=== PATIENT | female | born 1940 | race Caucasian/White ===

== ENCOUNTER 2016-11-03 12:36 | Inpatient (IN) | payer OTHER ==
[2016-11-03] VITALS (11 sets, daily range): BP systolic 79–144; BP diastolic 47–101
[~2016-11-03] VITALS: Ht 162.6 cm; Wt 91.9 kg
[2016-11-03 13:11] LABS: BASE EXCESS -0.2 mEq/L (-3 to +3); BICARBONATE 28.7 mEq/L (22-26); CARBOXY HGB 2.3 % (0-5); COMMENTS - BLOOD GASES A+C+; METHEMOGLOBIN 1.3 % (0-1.5); PCO2 67 mm Hg (35-45); PO2 232 mm Hg (80-100); SITE LRA; pH 7.24 (7.35-7.45)
[2016-11-03 13:12] LABS: DEVICE 840; FI02 100 %; MECHANICAL RATE 16 resp/min; MODE AC; PEEP 5 CM/H20; TIDAL VOLUME 450 ML; TOTAL RESP RATE 16 resp/min
[2016-11-03 13:26] LABS: HEMATOCRIT 39.5 % (36.0-46.0); MCH 26.9 PG (29.0-34.0); MCHC 29.9 G/DL (30.0-36.0); MCV 90.2 FL (83-99); NRBC (%) 0.1 /100 WBC (0-0); RBC DIS.WIDTH-CV 14.7 % (11.8-14.6); RBC DIS.WIDTH-SD 48.5 % (39-53); RED BLOOD COUNT 4.38 M/uL (3.80-5.20); WHITE BLOOD COUNT 23.1 K/uL (4.1-10.2)
[2016-11-03 13:36] LABS: CHLORIDE 102 mEq/L (99-109); POTASSIUM 3.8 mEq/L (3.7-5.4); SODIUM 141 mEq/L (136-147)
[2016-11-03 13:38] LABS: GLUCOSE 389 mg/dL (70-99)
[2016-11-03 13:39] LABS: ANION GAP 18 MEQ/L (2-14)
[2016-11-03 13:40] LABS: TOTAL BILIRUBIN 0.6 mg/dL (0.0-1.0)
[2016-11-03 13:42] LABS: ALKALINE PHOSPHATASE 110 IU/L (3-129); GFR ESTIMATE (CALCULATED) 29 mL/min/
[2016-11-03 13:43] LABS: UREA NITROGEN (BUN) 54 mg/dL (9-23)
[2016-11-03 13:45] LABS: CREATINE KINASE 63 IU/L (1-294); TOTAL CK 63 IU/L (1-294)
[2016-11-03 13:48] LABS: TROP-I INTERPRETATION NEGATIVE; TROPONIN-I 0.05 ng/mL (0.0-0.30)
[2016-11-03 13:51] LABS: CK-MB 1.6 ng/mL (0.0-4.9)
[2016-11-03 13:58] LABS: INTER. NORMALIZED RATIO 1.4
[2016-11-03 14:05] LABS: PROTHROMBIN TIME 14.8 (9.2-11.2)
[2016-11-03 14:09] LABS: PTT 20.7 (25-32)
[2016-11-03 14:16] LABS: ADD MIUA? YES; BILIRUBIN SMALL; BLOOD NEGATIVE; COLOR AMBER ((YELLOW)); GLUCOSE (STRIP) 50; KETONES NEGATIVE; LEUKOCYTES NEGATIVE; NITRITE NEGATIVE; PROTEIN (STRIP) 30; SPECIFIC GRAVITY 1.018 (1.000-1.030)
[2016-11-03 14:25] LABS: BACTERIA 1+ /HPF; BUDDING YEAST 3+; CALCIUM OXALATE CRYSTALS 3+ /HPF; EPITHELIAL CELLS 2+ /HPF; HYALINE CASTS TNTC /LPF; MUCUS 4+ /LPF; RED BLOOD CELLS 0-5 /HPF (0-5); UCUL ADDED? NO; WHITE BLOOD CELLS 30-40 /HPF (0-5); WHITE BLOOD CELLS CLUMP MANY /HPF (0-5)
[2016-11-03 14:47] LABS: ABS NEUTROPHIL COUNT 19.7; ATYPICAL LYMPHOCYTE 2.6 %; BAND NEUTROPHILS 11.3 % (0-8.0); EOSINOPHIL ABS CT 0; INSTRUMENT ABS NEUTROPHIL CT 19.7 K/uL; LYMPHOCYTES 5.2 % (15.0-45.0); MEAN PLAT.VOLUME 9.8 uM^3 (9.5-12.4); METAMYELOCYTES 1.7 %; MYELOCYTES 1.8 %; PLATELET COUNT 587 K/uL (156-360); SEG.NEUTROPHILS 73.9 % (46.0-76.0)
[2016-11-03 15:01] LABS: BASE EXCESS 1.8 mEq/L (-3 to +3); BICARBONATE 28.2 mEq/L (22-26); METHEMOGLOBIN 1.3 % (0-1.5); PCO2 51 mm Hg (35-45); PO2 103 mm Hg (80-100); pH 7.35 (7.35-7.45)
[2016-11-03 15:03] LABS: COMMENTS - BLOOD GASES A+C+; DEVICE VENT; FI02 60 %; MECHANICAL RATE 20 resp/min; MODE AC; PEEP 5 CM/H20; SITE LR; TIDAL VOLUME 450 ML; TOTAL RESP RATE 20 resp/min
[2016-11-03 16:22] LABS: ANISOCYTOSIS 1+; PLAT.SUFFICIENCY INCREASED
[2016-11-03 18:45] LABS: METH RESISTANT S AUREUS PCR NEGATIVE (NEGATIVE)
[2016-11-03 18:54] LABS: PROBE CHECK PASS; SPECIMEN PROCESSING CONTROL PASS
[2016-11-03 19:18] LABS: MAGNESIUM 2.4 mg/dL (1.3-2.7)
[2016-11-03 20:26] LABS: UR CREATININE CONCENTRATION 121.4 MG/DL
[2016-11-04] VITALS (22 sets, daily range): BP systolic 89–139; BP diastolic 49–76
[2016-11-04 00:22] LABS: POINT-OF-CARE METER ID UU14162636
[2016-11-04 01:03] LABS: CREATINE KINASE 58 IU/L (1-294); TOTAL CK 58 IU/L (1-294)
[2016-11-04 01:06] LABS: TROP-I INTERPRETATION NEGATIVE; TROPONIN-I 0.05 ng/mL (0.0-0.30)
[2016-11-04 01:15] LABS: CK-MB 1.3 ng/mL (0.0-4.9)
[2016-11-04 05:35] LABS: TROP-I INTERPRETATION NEGATIVE; TROPONIN-I 0.03 ng/mL (0.0-0.30)
[2016-11-04 05:37] LABS: HEMATOCRIT 35.2 % (36.0-46.0); MCH 26.7 PG (29.0-34.0); MCHC 30.4 G/DL (30.0-36.0); MCV 87.8 FL (83-99); MEAN PLAT.VOLUME 9.9 uM^3 (9.5-12.4); PLATELET COUNT 418 K/uL (156-360); RBC DIS.WIDTH-CV 14.8 % (11.8-14.6); RBC DIS.WIDTH-SD 47.8 % (39-53); RED BLOOD COUNT 4.01 M/uL (3.80-5.20); WHITE BLOOD COUNT 20.8 K/uL (4.1-10.2)
[2016-11-04 05:42] LABS: ANION GAP 12 MEQ/L (2-14); CHLORIDE 104 MEQ/L (99-109); CREATINE KINASE 33 IU/L (1-294); GFR ESTIMATE (CALCULATED) 39 mL/min/; GLUCOSE 258 mg/dL (70-99); POTASSIUM 3.6 MEQ/L (3.7-5.4); SAMPLE HEMOLYSIS CHECK 0; SAMPLE ICTERIC CHECK 0; SAMPLE LIPEMIA CHECK 0; SODIUM 143 MEQ/L (136-147); TOTAL CK 33 IU/L (1-294); UREA NITROGEN (BUN) 53 mg/dL (9-23)
[2016-11-04 06:29] LABS: POINT-OF-CARE METER ID UU14162636
[2016-11-04 10:16] LABS: ABS NEUTROPHIL COUNT 18.8; BAND NEUTROPHILS 11.4 % (0-8.0); BASOPHILS 0.9 %; EOSINOPHIL ABS CT 0; INSTRUMENT ABS NEUTROPHIL CT 18.1 K/uL; LYMPHOCYTES 5.3 % (15.0-45.0); MYELOCYTES 1.8 %; SEG.NEUTROPHILS 78.9 % (46.0-76.0)
[2016-11-04 12:51] LABS: TROP-I INTERPRETATION NEGATIVE; TROPONIN-I 0.03 ng/mL (0.0-0.30)
[2016-11-04 12:53] LABS: CREATINE KINASE 24 IU/L (1-294); TOTAL CK 24 IU/L (1-294)
[2016-11-04 13:06] LABS: POINT-OF-CARE METER ID UU14162636
[2016-11-04 13:41] LABS: CK-MB 0.7 ng/mL (0.0-4.9)
[2016-11-04 18:15] LABS: POINT-OF-CARE METER ID UU13113803
[2016-11-04 18:22] LABS: TROP-I INTERPRETATION NEGATIVE; TROPONIN-I 0.03 ng/mL (0.0-0.30)
[2016-11-04 18:46] LABS: CREATINE KINASE 54 IU/L (1-294); TOTAL CK 54 IU/L (1-294)
[2016-11-04 18:52] LABS: CK-MB 0.8 ng/mL (0.0-4.9)
[2016-11-05] VITALS (24 sets, daily range): BP systolic 75–122; BP diastolic 40–66
[2016-11-05 01:17] LABS: POINT-OF-CARE METER ID UU14162636; POINT-OF-CARE USER ID 609231305
[2016-11-05 05:47] LABS: HEMATOCRIT 32.9 % (36.0-46.0); MCH 26.6 PG (29.0-34.0); MCHC 29.8 G/DL (30.0-36.0); MCV 89.2 FL (83-99); MEAN PLAT.VOLUME 9.9 uM^3 (9.5-12.4); NRBC (%) 0.1 /100 WBC (0-0); PLATELET COUNT 293 K/uL (156-360); RBC DIS.WIDTH-CV 15.1 % (11.8-14.6); RBC DIS.WIDTH-SD 49.8 % (39-53); RED BLOOD COUNT 3.69 M/uL (3.80-5.20); WHITE BLOOD COUNT 21.2 K/uL (4.1-10.2)
[2016-11-05 06:05] LABS: POINT-OF-CARE METER ID UU14162636
[2016-11-05 06:10] LABS: ANION GAP 8 MEQ/L (2-14); CHLORIDE 106 MEQ/L (99-109); GFR ESTIMATE (CALCULATED) 52 mL/min/; GLUCOSE 276 mg/dL (70-99); MAGNESIUM 1.9 mg/dl (1.3-2.7); POTASSIUM 3.5 MEQ/L (3.7-5.4); SAMPLE HEMOLYSIS CHECK 0; SAMPLE ICTERIC CHECK 0; SAMPLE LIPEMIA CHECK 0; SODIUM 144 MEQ/L (136-147); UREA NITROGEN (BUN) 43 mg/dL (9-23)
[2016-11-05 07:16] LABS: BASOPHIL COUNT 0.1 K/uL (0-0.1); EOSINOPHIL (%) 0.1 % (0-5); IMMATURE GRANULOCYTE (%) 4.3 % (0.0-0.7); IMMATURE GRANULOCYTE COUNT 0.9 K/uL; INSTRUMENT ABS NEUTROPHIL CT 18.7 K/uL; LYMPHOCYTE COUNT 1.2 K/uL (1.0-2.8); MONOCYTE (%) 1.8 % (3-12); MONOCYTE COUNT 0.4 K/uL (0-0.8); NEUTROPHIL COUNT 18.7 K/uL (1.8-6.4)
[2016-11-05 11:52] LABS: POINT-OF-CARE METER ID UU14174217
[2016-11-05 18:11] LABS: POINT-OF-CARE METER ID UU14162636
[2016-11-06] VITALS (25 sets, daily range): BP systolic 69–121; BP diastolic 37–68
[2016-11-06 05:45] LABS: MCH 26.3 PG (29.0-34.0); MCHC 29.1 G/DL (30.0-36.0); MCV 90.2 FL (83-99); MEAN PLAT.VOLUME 10.3 uM^3 (9.5-12.4); NRBC (%) 0.1 /100 WBC (0-0); PLATELET COUNT 274 K/uL (156-360); RBC DIS.WIDTH-CV 15.3 % (11.8-14.6); RBC DIS.WIDTH-SD 50.4 % (39-53); RED BLOOD COUNT 3.77 M/uL (3.80-5.20); WHITE BLOOD COUNT 24.2 K/uL (4.1-10.2)
[2016-11-06 06:01] LABS: ANION GAP 9 MEQ/L (2-14); CHLORIDE 108 MEQ/L (99-109); GFR ESTIMATE (CALCULATED) 52 mL/min/; GLUCOSE 282 mg/dL (70-99); MAGNESIUM 2.1 mg/dl (1.3-2.7); POTASSIUM 4.1 MEQ/L (3.7-5.4); SAMPLE HEMOLYSIS CHECK 0; SAMPLE ICTERIC CHECK 0; SAMPLE LIPEMIA CHECK 0; SODIUM 147 MEQ/L (136-147); UREA NITROGEN (BUN) 37 mg/dL (9-23)
[2016-11-06 07:04] LABS: ABS NEUTROPHIL COUNT 21.9; ANISOCYTOSIS 1+; BAND NEUTROPHILS 1.5 % (0-8.0); EOSINOPHIL ABS CT 0.1; EOSINOPHILS 0.5 % (0-5.0); INSTRUMENT ABS NEUTROPHIL CT 20.2 K/uL; PLAT.SUFFICIENCY ADEQUATE
[2016-11-06 12:21] LABS: POINT-OF-CARE METER ID UU14174217; POINT-OF-CARE USER ID 612031313
[2016-11-07] VITALS (33 sets, daily range): BP systolic 72–128; BP diastolic 35–62
[2016-11-07 06:01] LABS: HEMATOCRIT 31.6 % (36.0-46.0); MCH 26.5 PG (29.0-34.0); MCHC 28.8 G/DL (30.0-36.0); MCV 91.9 FL (83-99); MEAN PLAT.VOLUME 10.5 uM^3 (9.5-12.4); NRBC (%) 0.1 /100 WBC (0-0); PLATELET COUNT 204 K/uL (156-360); RBC DIS.WIDTH-CV 15.4 % (11.8-14.6); RED BLOOD COUNT 3.44 M/uL (3.80-5.20); WHITE BLOOD COUNT 23.1 K/uL (4.1-10.2)
[2016-11-07 06:27] LABS: ANION GAP 8 MEQ/L (2-14); CHLORIDE 110 MEQ/L (99-109); GFR ESTIMATE (CALCULATED) 58 mL/min/; GLUCOSE 243 mg/dL (70-99); SAMPLE HEMOLYSIS CHECK 0; SAMPLE ICTERIC CHECK 0; SAMPLE LIPEMIA CHECK 0; SODIUM 146 MEQ/L (136-147); UREA NITROGEN (BUN) 34 mg/dL (9-23)
[2016-11-07 06:51] LABS: ABS NEUTROPHIL COUNT 20.3; BAND NEUTROPHILS 2.6 % (0-8.0); EOSINOPHIL ABS CT 0.2; EOSINOPHILS 0.9 % (0-5.0); INSTRUMENT ABS NEUTROPHIL CT 18.6 K/uL; LYMPHOCYTES 9.6 % (15.0-45.0); METAMYELOCYTES 1.7 %; SEG.NEUTROPHILS 85.2 % (46.0-76.0)
[2016-11-07 12:02] LABS: POINT-OF-CARE METER ID UU14174217
[2016-11-07 22:06] LABS: POINT-OF-CARE METER ID UU14174217; POINT-OF-CARE USER ID LABHNS84
[2016-11-08] VITALS (24 sets, daily range): BP systolic 0–138; BP diastolic 0–72
[2016-11-08 00:09] LABS: POINT-OF-CARE METER ID UU14174217; POINT-OF-CARE USER ID LABHNS84
[2016-11-08 05:12] LABS: POINT-OF-CARE METER ID UU13113803; POINT-OF-CARE USER ID LABHNS84
[2016-11-08 05:25] LABS: HEMATOCRIT 33.6 % (36.0-46.0); MCH 26.5 PG (29.0-34.0); MCHC 28.3 G/DL (30.0-36.0); MCV 93.6 FL (83-99); MEAN PLAT.VOLUME 10.3 uM^3 (9.5-12.4); RBC DIS.WIDTH-CV 15.5 % (11.8-14.6); RBC DIS.WIDTH-SD 53.1 % (39-53); RED BLOOD COUNT 3.59 M/uL (3.80-5.20); WHITE BLOOD COUNT 29.4 K/uL (4.1-10.2)
[2016-11-08 06:10] LABS: ANION GAP 8 MEQ/L (2-14); CHLORIDE 111 MEQ/L (99-109); GFR ESTIMATE (CALCULATED) 47 mL/min/; GLUCOSE 240 mg/dL (70-99); MAGNESIUM 2.1 mg/dl (1.3-2.7); POTASSIUM 4.5 MEQ/L (3.7-5.4); SAMPLE HEMOLYSIS CHECK 0; SAMPLE ICTERIC CHECK 0; SAMPLE LIPEMIA CHECK 0; SODIUM 149 MEQ/L (136-147); UREA NITROGEN (BUN) 36 mg/dL (9-23)
[2016-11-08 06:39] LABS: PLATELET COUNT ND K/uL (156-360)
[2016-11-08 06:41] LABS: ABS NEUTROPHIL COUNT 25.3; ANISOCYTOSIS 1+; ATYPICAL LYMPHOCYTE 0.9 %; BAND NEUTROPHILS 4.3 % (0-8.0); EOSINOPHIL ABS CT 0; INSTRUMENT ABS NEUTROPHIL CT 24.1 K/uL; LYMPHOCYTES 7.7 % (15.0-45.0); MACROCYTES 1+; METAMYELOCYTES 0.9 %; MYELOCYTES 2.6 %; PLATELET CLUMPS PRESENT - PLATELET COUNT APPEARS ADQ.; SEG.NEUTROPHILS 81.9 % (46.0-76.0); SPHEROCYTES 1+
[2016-11-08 13:05] LABS: POINT-OF-CARE METER ID UU13113803
[2016-11-08 17:56] LABS: POINT-OF-CARE METER ID UU13113803
[2016-11-09] VITALS (24 sets, daily range): BP systolic 90–138; BP diastolic 44–71
[2016-11-09 01:11] LABS: POINT-OF-CARE METER ID UU13113803
[2016-11-09 05:36] LABS: MEAN PLAT.VOLUME 10.8 uM^3 (9.5-12.4); PLATELET COUNT 265 K/uL (156-360)
[2016-11-09 06:27] LABS: HEMATOCRIT 33.5 % (36.0-46.0); MCH 26.3 PG (29.0-34.0); MCHC 28.4 G/DL (30.0-36.0); MCV 92.8 FL (83-99); NRBC (%) 0.1 /100 WBC (0-0); RBC DIS.WIDTH-CV 15.1 % (11.8-14.6); RBC DIS.WIDTH-SD 52.3 % (39-53); RED BLOOD COUNT 3.61 M/uL (3.80-5.20)
[2016-11-09 06:35] LABS: ANION GAP 10 MEQ/L (2-14); CHLORIDE 110 MEQ/L (99-109); GFR ESTIMATE (CALCULATED) 43 mL/min/; GLUCOSE 195 mg/dL (70-99); MAGNESIUM 2.1 mg/dl (1.3-2.7); POTASSIUM 4.4 MEQ/L (3.7-5.4); SAMPLE HEMOLYSIS CHECK 0; SAMPLE ICTERIC CHECK 0; SAMPLE LIPEMIA CHECK 0; SODIUM 150 MEQ/L (136-147); UREA NITROGEN (BUN) 36 mg/dL (9-23)
[2016-11-09 06:37] LABS: WHITE BLOOD COUNT 31.5 K/uL (4.1-10.2)
[2016-11-09 07:27] LABS: ABS NEUTROPHIL COUNT 22.4; ANISOCYTOSIS 1+; EOSINOPHIL ABS CT 0.3; INSTRUMENT ABS NEUTROPHIL CT 25.1 K/uL; PLAT.SUFFICIENCY ADEQUATE
[2016-11-09 11:34] LABS: POINT-OF-CARE METER ID UU14162636
[2016-11-09 12:10] LABS: BASE EXCESS 5.6 mEq/L (-3 to +3); BICARBONATE 32.4 mEq/L (22-26); CARBOXY HGB 2.3 % (0-5); pH 7.34 (7.35-7.45)
[2016-11-09 12:11] LABS: PCO2 60 mm Hg (35-45); PO2 69 mm Hg (80-100)
[2016-11-09 12:12] LABS: COMMENTS - BLOOD GASES +C; DEVICE PV840; FI02 60 %; MECHANICAL RATE 20 resp/min; MODE AC VC+; SITE RR +A; TIDAL VOLUME 450 ML; TOTAL RESP RATE 22 resp/min
[2016-11-09 12:13] LABS: INSPIRATION TIME 0.9 seconds; PEEP 7 CM/H20
[2016-11-09 18:12] LABS: POINT-OF-CARE METER ID UU13113803
[2016-11-10] VITALS (24 sets, daily range): BP systolic 77–130; BP diastolic 42–67
[2016-11-10 00:48] LABS: POINT-OF-CARE METER ID UU14162636
[2016-11-10 05:49] LABS: BASOPHIL COUNT 0.1 K/uL (0-0.1); EOSINOPHIL COUNT 0.3 K/uL (0-0.3); HEMATOCRIT 31.6 % (36.0-46.0); IMMATURE GRANULOCYTE (%) 3.5 % (0.0-0.7); IMMATURE GRANULOCYTE COUNT 0.9 K/uL; INSTRUMENT ABS NEUTROPHIL CT 22.3 K/uL; LYMPHOCYTE COUNT 1.7 K/uL (1.0-2.8); MCH 26.6 PG (29.0-34.0); MCHC 28.8 G/DL (30.0-36.0); MCV 92.4 FL (83-99); MEAN PLAT.VOLUME 10.9 uM^3 (9.5-12.4); MONOCYTE (%) 3.1 % (3-12); MONOCYTE COUNT 0.8 K/uL (0-0.8); NEUTROPHIL (%) 85.6 % (45-76); NEUTROPHIL COUNT 22.3 K/uL (1.8-6.4); PLATELET COUNT 281 K/uL (156-360); RBC DIS.WIDTH-CV 15.2 % (11.8-14.6); RBC DIS.WIDTH-SD 51.2 % (39-53); RED BLOOD COUNT 3.42 M/uL (3.80-5.20)
[2016-11-10 06:06] LABS: POINT-OF-CARE METER ID UU13113731
[2016-11-10 06:20] LABS: ANION GAP 10 MEQ/L (2-14); CHLORIDE 109 MEQ/L (99-109); GFR ESTIMATE (CALCULATED) 36 mL/min/; GLUCOSE 177 mg/dL (70-99); MAGNESIUM 2.1 mg/dl (1.3-2.7); POTASSIUM 4.2 MEQ/L (3.7-5.4); SAMPLE HEMOLYSIS CHECK 0; SAMPLE ICTERIC CHECK 0; SAMPLE LIPEMIA CHECK 0; SODIUM 150 MEQ/L (136-147); UREA NITROGEN (BUN) 39 mg/dL (9-23)
[2016-11-10 18:35] LABS: POINT-OF-CARE METER ID UU13113731
[2016-11-11] VITALS (24 sets, daily range): BP systolic 0–136; BP diastolic 0–82
[2016-11-11 00:02] LABS: POINT-OF-CARE METER ID UU13113731
[2016-11-11 05:06] LABS: BICARBONATE 30.1 mEq/L (22-26); CARBOXY HGB 2.1 % (0-5); METHEMOGLOBIN 1.3 % (0-1.5)
[2016-11-11 05:07] LABS: COMMENTS - BLOOD GASES C+A+; DEVICE VENTILATOR; FI02 35 %; INSPIRATION TIME 0.9 seconds; MECHANICAL RATE 25 resp/min; MODE AC VC+; PCO2 36 mm Hg (35-45); PEEP 7 CM/H20; PO2 113 mm Hg (80-100); SITE RR; TIDAL VOLUME 450 ML; TOTAL RESP RATE 25 resp/min; pH 7.53 (7.35-7.45)
[2016-11-11 06:27] LABS: POINT-OF-CARE METER ID UU14162636
[2016-11-11 06:39] LABS: EOSINOPHIL (%) 1.4 % (0-5); EOSINOPHIL COUNT 0.3 K/uL (0-0.3); HEMATOCRIT 28.1 % (36.0-46.0); IMMATURE GRANULOCYTE (%) 4.3 % (0.0-0.7); IMMATURE GRANULOCYTE COUNT 0.8 K/uL; INSTRUMENT ABS NEUTROPHIL CT 14.9 K/uL; LYMPHOCYTE COUNT 1.4 K/uL (1.0-2.8); MCH 26.2 PG (29.0-34.0); MCHC 28.5 G/DL (30.0-36.0); MCV 92.1 FL (83-99); MEAN PLAT.VOLUME 11.1 uM^3 (9.5-12.4); MONOCYTE (%) 4.5 % (3-12); MONOCYTE COUNT 0.8 K/uL (0-0.8); NEUTROPHIL (%) 81.7 % (45-76); NEUTROPHIL COUNT 14.9 K/uL (1.8-6.4); PLATELET COUNT 301 K/uL (156-360); RBC DIS.WIDTH-CV 15.5 % (11.8-14.6); RBC DIS.WIDTH-SD 51.7 % (39-53); RED BLOOD COUNT 3.05 M/uL (3.80-5.20); WHITE BLOOD COUNT 18.2 K/uL (4.1-10.2)
[2016-11-11 06:53] LABS: ANION GAP 12 MEQ/L (2-14); CHLORIDE 107 MEQ/L (99-109); GFR ESTIMATE (CALCULATED) 31 mL/min/; GLUCOSE 161 mg/dL (70-99); MAGNESIUM 2.2 mg/dl (1.3-2.7); POTASSIUM 4.3 MEQ/L (3.7-5.4); SAMPLE HEMOLYSIS CHECK 0; SAMPLE ICTERIC CHECK 0; SAMPLE LIPEMIA CHECK 0; SODIUM 147 MEQ/L (136-147); UREA NITROGEN (BUN) 42 mg/dL (9-23)
[2016-11-11 13:26] LABS: POINT-OF-CARE METER ID UU13113731
[2016-11-11 17:41] LABS: POINT-OF-CARE METER ID UU14162636
[2016-11-11 23:37] LABS: POINT-OF-CARE METER ID UU14162636
[2016-11-12] VITALS (22 sets, daily range): BP systolic 65–125; BP diastolic 33–67
[2016-11-12 05:19] LABS: POINT-OF-CARE METER ID UU13113731
[2016-11-12 05:38] LABS: EOSINOPHIL (%) 0.8 % (0-5); EOSINOPHIL COUNT 0.1 K/uL (0-0.3); HEMATOCRIT 26.8 % (36.0-46.0); IMMATURE GRANULOCYTE (%) 1.2 % (0.0-0.7); IMMATURE GRANULOCYTE COUNT 0.2 K/uL; INSTRUMENT ABS NEUTROPHIL CT 15.1 K/uL; LYMPHOCYTE COUNT 1.1 K/uL (1.0-2.8); MCH 27.1 PG (29.0-34.0); MCHC 29.9 G/DL (30.0-36.0); MCV 90.8 FL (83-99); MONOCYTE (%) 3.4 % (3-12); MONOCYTE COUNT 0.6 K/uL (0-0.8); NEUTROPHIL (%) 87.9 % (45-76); NEUTROPHIL COUNT 15.1 K/uL (1.8-6.4); PLATELET COUNT 315 K/uL (156-360); RBC DIS.WIDTH-CV 15.3 % (11.8-14.6); RBC DIS.WIDTH-SD 50.7 % (39-53); RED BLOOD COUNT 2.95 M/uL (3.80-5.20); WHITE BLOOD COUNT 17.2 K/uL (4.1-10.2)
[2016-11-12 06:06] LABS: ANION GAP 12 MEQ/L (2-14); CHLORIDE 105 MEQ/L (99-109); GFR ESTIMATE (CALCULATED) 31 mL/min/; GLUCOSE 147 mg/dL (70-99); MAGNESIUM 2.2 mg/dl (1.3-2.7); POTASSIUM 3.7 MEQ/L (3.7-5.4); SAMPLE HEMOLYSIS CHECK 0; SAMPLE ICTERIC CHECK 0; SAMPLE LIPEMIA CHECK 0; SODIUM 145 MEQ/L (136-147); UREA NITROGEN (BUN) 42 mg/dL (9-23)
[2016-11-12 12:47] LABS: POINT-OF-CARE METER ID UU13113731
== END 2016-11-12 20:21 | DRG 853 ==
LOC: EME → EDBD 12:36 → 4WEST 15:24 → EDOF 15:24 → 4WEST 17:08
PROVIDERS: Emergency Medicine; Internal Medicine Nephrology; Internal Medicine Pulmonary Disease
PROC: 02HV3DZ Insertion of Intraluminal Device into Superior Vena Cava, Percutaneous Approach (ICD-10-PCS; principal; 2016-11-03)
PROC: 5A1955Z Respiratory Ventilation, Greater than 96 Consecutive Hours (ICD-10-PCS; principal; 2016-11-03)
PROC: 0BH17EZ Insertion of Endotracheal Airway into Trachea, Via Natural or Artificial Opening (ICD-10-PCS; principal; 2016-11-03)
PROC: 0BBL3ZX Excision of Left Lung, Percutaneous Approach, Diagnostic (ICD-10-PCS; 2016-11-05)
DX: A40.3 Sepsis due to Streptococcus pneumoniae (principal); R65.21 Severe sepsis with septic shock; J96.01 Acute respiratory failure with hypoxia; R68.0 Hypothermia, not associated with low environmental temperature; N17.9 Acute kidney failure, unspecified; E66.9 Obesity, unspecified; Z68.34 Body mass index [BMI] 34.0-34.9, adult; E83.52 Hypercalcemia; J18.9 Pneumonia, unspecified organism; R73.9 Hyperglycemia, unspecified; R57.9 Shock, unspecified; C34.92 Malignant neoplasm of unspecified part of left bronchus or lung; E87.6 Hypokalemia; Z51.5 Encounter for palliative care; I48.91 Unspecified atrial fibrillation; N39.0 Urinary tract infection, site not specified; J98.19 Other pulmonary collapse; B95.3 Streptococcus pneumoniae as the cause of diseases classified elsewhere; L89.152 Pressure ulcer of sacral region, stage 2; L89.890 Pressure ulcer of other site, unstageable
CPT/HCPCS: 36600; 70450; 71010; 71250; 77012; 80048; 80053; 81003; 82140; 82550; 82550 91; 82553; 82570; 82803; 82948; 83605; 83735; 84100; 84156; 84300; 84484; 85025; 85610; 85730; 87040; 87070; 87077; 87086; 87181; 87205; 87641; 87801; 88305; 88341 TC; 88342 TC; 93005; 93306; 94002; 94003; 94640; 94640 76; 94760; 94799; 99202; 99281; 99285; J0295; J0330; J0456; J1644; J1815; J1940; J2060; J2270; J2543; J2704; J3370; J3475; J7030; J7050; J7120; P9045; P9047; S0028